=== PATIENT | male | born 1970 | race Caucasian/White ===

== ENCOUNTER → 2024-05-02 09:51 | Outpatient (BNVA) | payer OTHER, SELFPAY | PROVIDERS: Visit Provider Physician Assistant Medical | DX: M23.8X1 Other internal derangements of right knee (principal) | CPT/HCPCS: 73564; 99204 ==

== ENCOUNTER → 2024-05-11 08:41 | Outpatient (BNVA) | payer OTHER, SELFPAY | PROVIDERS: Visit Provider Physician Assistant | DX: M23.8X1 Other internal derangements of right knee (principal) | CPT/HCPCS: 99214 ==